=== PATIENT | male | born 1965 | race Caucasian/White ===

== ENCOUNTER 2016-11-17 13:26 | Emergency (ER) | payer OTHER ==
[~2016-11-17] VITALS: Ht 177.8 cm; Wt 97.1 kg
[~2016-11-17 13:26] MED LIST: ONDA4TAB7 PO; OXYC-323 PO; RANI150T2 PO
[2016-11-17] MEDS ORDERED: IV NORMAL SALINE 1000ML BAG 1,000 ML IV SCH (13:58)
[2016-11-17] MEDS ORDERED: FAMOTIDINE 20 MG/2 ML VIAL IVP ONE (14:00)
[2016-11-17] MEDS ORDERED: ONDANSETRON PF 4 MG/2 ML VIAL. IV ONE (14:00)
[2016-11-17] MEDS ORDERED: IOHEXOL 300 MG/ML 75 ML VIAL IV ONE (14:15)
[2016-11-17] MEDS: fentaNYL PF VIAL 100 MCG/2 ML VIAL IV PRN ×2 (14:17→16:16)
[2016-11-17 14:20] LABS: BASO % 0 % (0-3); EOS % 2 % (0-3); HEMATOCRIT 44.7 % (39.0-53.0); HEMOGLOBIN 15.5 g/dL (13.0-17.5); LYMPH # 3.8 x10^3/uL (1.0-4.8); LYMPH % 38 % (24-48); MEAN CORPUSCULAR HEMOGLOBIN 31 pg (25-35); MEAN CORPUSCULAR HGB CONC 35 g/dL (31-37); MEAN CORPUSCULAR VOLUME 90 fL (79-100); MONO % 5 % (0-9); NEUT % 55 % (31-73); PLATELET COUNT 336 x10^3/uL (140-400); RED BLOOD COUNT 4.96 x10^6/uL (4.30-5.70); RED CELL DISTRIBUTION WIDTH 13.2 % (11.5-14.5); WHITE BLOOD COUNT 9.9 x10^3/uL (4.0-11.0)
--- NOTE | 2016-11-17 14:32 | PHYS DOC ---
Past Medical History Past Medical History: Diverticulitis, Diverticulosis, GERD Past Surgical History: Cholecystectomy, Other Additional Past Surgical Histo: BACK SURGERY X2, TUMOR REMOVAL FROM THROAT Alcohol Use: Occasionally Drug Use: None Adult General Chief Complaint Chief Complaint: ABDOMINAL PAIN HPI HPI Patient is a 51 year old male who presents with complaint of abdominal pain for one week. Patient states that his pain is located in his lower left abdomen. Patient states that it has been progressively worse over the past 3 days. Patient states that the pain is constant but occasionally he has increased sharp pains with movement. Patient also has had intermittent streaking of blood in his stools which patient attributes to hemorrhoids. The patient however does state that he has had history of diverticulitis and was treated with antibiotics at that time with improvement in symptoms. Patient states that his current symptoms are similar to his previous episode. Patient has had nausea and lightheadedness but denies fevers or vomiting. Currently the patient rates his pain as 5 out of 10. The patient presented to urgent care prior to arrival in the emergency department and was instructed to come here for further evaluation due to limited testing capabilities from the urgent care. Review of Systems Review of Systems Constitutional: Lightheadedness, denies fever or chills [] Eyes: Denies change in visual acuity, redness, or eye pain [] HENT: Denies nasal congestion or sore throat [] Respiratory: Denies cough or shortness of breath [] Cardiovascular: Denies chest pain or edema[] GI: Abdominal pain, nausea, bloody stools[] : Denies dysuria or hematuria [] Musculoskeletal: Denies back pain or joint pain [] Integument: Denies rash or skin lesions [] Neurologic: Denies headache, focal weakness or sensory changes [] Current Medications Current Medications Current Medications Medications (Trade) Dose Ordered Sig/Esther Start Time Stop Time Status Last Admin Dose Admin Famotidine (Pepcid) 20 mg 1X ONCE 11/17/16 14:00 11/17/16 14:02 DC 11/17/16 14:17 20 MG Fentanyl Citrate (Fentanyl 2ml Vial) 50 mcg PRN Q15MIN PRN 11/17/16 14:00 11/18/16 13:59 11/17/16 16:16 50 MCG Iohexol (Omnipaque 300 Mg/ml) 75 ml 1X ONCE 11/17/16 14:15 11/17/16 14:16 DC 11/17/16 15:14 75 ML Ondansetron HCl (Zofran) 4 mg 1X ONCE 11/17/16 14:00 11/17/16 14:02 DC 11/17/16 14:17 4 MG Sodium Chloride 1,000 ml @ 1,000 mls/hr Q1H 11/17/16 13:58 11/17/16 14:57 DC 11/17/16 14:16 1,000 MLS/HR Allergies Allergies Allergies Coded Allergies Type Severity Reaction Last Updated Verified Penicillins Allergy Intermediate Hives 11/23/14 Yes zolpidem Adverse Reaction Severe HALLUCINATIONS 11/23/14 Yes Physical Exam Physical Exam Constitutional: Alert, afebrile, appears in mild to moderate discomfort.[] HENT: Normocephalic, atraumatic, bilateral external ears normal, oropharynx moist, no oral exudates, nose normal. [] Eyes: PERRLA, EOMI, conjunctiva normal, no discharge. [] Neck: Normal range of motion, no tenderness, supple, no stridor. [] Cardiovascular:Heart rate regular rhythm, no murmur [] Lungs & Thorax: Bilateral breath sounds clear to auscultation [] Abdomen: Bowel sounds normal, soft, left lower quadrant tenderness to palpation , minimal guarding, no rebound tenderness, no masses, no pulsatile masses. [] Skin: Warm, dry, no erythema, no rash. [] Back: No tenderness, no CVA tenderness. [] Extremities: No tenderness, no cyanosis, no clubbing, ROM intact, no edema. [] Neurologic: Alert and oriented X 3, normal motor function, normal sensory function, no focal deficits noted. [] Current Patient Data Vital Signs Vital Signs Date Time Temp Pulse Resp B/P (MAP) Pulse Ox O2 Delivery O2 Flow Rate FiO2 11/17/16 16:16 15 11/17/16 13:40 97.8 57 130/90 (103) 99 Room Air 97.8 Lab Values Laboratory Tests Test 11/17/16 14:00 White Blood Count 9.9 x10^3/uL (4.0-11.0) Red Blood Count 4.96 x10^6/uL (4.30-5.70) Hemoglobin 15.5 g/dL (13.0-17.5) Hematocrit 44.7 % (39.0-53.0) Mean Corpuscular Volume 90 fL (79-100) Mean Corpuscular Hemoglobin 31 pg (25-35) Mean Corpuscular Hemoglobin Concent 35 g/dL (31-37) Red Cell Distribution Width 13.2 % (11.5-14.5) Platelet Count 336 x10^3/uL (140-400) Neutrophils (%) (Auto) 55 % (31-73) Lymphocytes (%) (Auto) 38 % (24-48) Monocytes (%) (Auto) 5 % (0-9) Eosinophils (%) (Auto) 2 % (0-3) Basophils (%) (Auto) 0 % (0-3) Neutrophils # (Auto) 5.5 x10^3uL (1.8-7.7) Lymphocytes # (Auto) 3.8 x10^3/uL (1.0-4.8) Monocytes # (Auto) 0.5 x10^3/uL (0.0-1.1) Eosinophils # (Auto) 0.1 x10^3/uL (0.0-0.7) Basophils # (Auto) 0.0 x10^3/uL (0.0-0.2) Urine Collection Type Unknown Urine Color Yellow Urine Clarity Clear Urine pH 5.5 Urine Specific [place] 1.015 Urine Protein Negative mg/dL (NEG-TRACE) Urine Glucose (UA) Negative mg/dL (NEG) Urine Ketones (Stick) Negative mg/dL (NEG) Urine Blood Negative (NEG) Urine Nitrite Negative (NEG) Urine Bilirubin Negative (NEG) Urine Urobilinogen Dipstick 0.2 mg/dL (0.2 mg/dL) Urine Leukocyte Esterase Negative (NEG) Urine RBC 0 /HPF (0-2) Urine WBC 0 /HPF (0-4) Urine Bacteria 0 /HPF (0-FEW) Urine Mucus Marked /LPF Sodium Level 141 mmol/L (136-145) Potassium Level 4.4 mmol/L (3.5-5.1) Chloride Level 106 mmol/L (98-107) Carbon Dioxide Level 26 mmol/L (21-32) Anion Gap 9 (6-14) Blood Urea Nitrogen 11 mg/dL (8-26) Creatinine 0.9 mg/dL (0.7-1.3) Estimated GFR (Cockcroft-Gault) 89.7 BUN/Creatinine Ratio 12 (6-20) Glucose Level 81 mg/dL (70-99) Calcium Level 9.3 mg/dL (8.5-10.1) Total Bilirubin 0.6 mg/dL (0.2-1.0) Aspartate Amino Transferase (AST) 31 U/L (15-37) Alanine Aminotransferase (ALT) 40 U/L (16-63) Alkaline Phosphatase 74 U/L (46-116) Total Protein 7.6 g/dL (6.4-8.2) Albumin 3.8 g/dL (3.4-5.0) Albumin/Globulin Ratio 1.0 (1.0-1.7) Lipase 158 U/L (73-393) Laboratory Tests 11/17/16 14:00 Laboratory Tests 11/17/16 14:00 EKG EKG Not performed[] Radiology/Procedures Radiology/Procedures [facility] [address] [place], [place] [id number] IMAGING REPORT Signed PATIENT: CICI TERRY ACCOUNT: [id number] : 1965 LOCATION: ER AGE: 51 SEX: M EXAM STATUS: REG ER ORD. PHYSICIAN: GABRIEL LAMBERT MD REASON: left lower quadrant pain, history of diverticulosis PROCEDURE: CT ABD PELV W/ IV CONTRST ONLY CT ABD PELV W/ IV CONTRST ONLY dated 11/17/2016 3:11 PM Indication:LEFT LOWER QUADRANT PAIN X3DAYS
OMNI 300 75ML
Comparison: September 05, 2014 exam. Technique: Following injection of 78 mL of Omnipaque 300 IV, images were obtained through the abdomen and pelvis. No oral contrast was given. One or more of the following individualized dose reduction techniques were utilized for this examination: 1. Automated exposure control 2. Adjustment of the mA and/or kV according to patient size 3. Use of iterative reconstruction technique Findings: The liver and spleen are normal in size without focal lesions. The gallbladder is surgically absent. Pancreas, adrenal glands, and kidneys are unremarkable. No free fluid or adenopathy is seen. The unopacified bowel loops show scattered diverticula in the sigmoid and descending colon without associated inflammatory changes. There is no evidence of bowel obstruction. The appendix is unremarkable. The prostate is not enlarged. No adenopathy is seen. IMPRESSION: There is diverticulosis of the colon without evidence of diverticulitis. The study is otherwise unremarkable. Electronically signed by: Haleigh Armendariz MD (11/17/2016 4:29 PM) [facility] [place] DICTATED and SIGNED BY: HALEIGH ARMENDARIZ MD DATE: 11/17/16 1691 CC: GABRIEL LAMBERT MD; NO PCP ~ [] Course & Med Decision Making Course & Med Decision Making Pertinent Labs and Imaging studies reviewed. (See chart for details) Patient was given IV fluids, fentanyl, and Zofran in the emergency department with improvement in symptoms. The patient's CT scan was negative for radiographic evidence of acute pathology. Based off the patient's symptoms and history, I suspect the patient may indeed have acute diverticulitis. The patient will be started on Flagyl and Cipro for treatment. I did recommend patient follow-up in 2-3 days with primary doctor for reevaluation to ensure symptoms are improving with initial treatment. I advised that the patient return to the emergency department for any worsening symptoms. Patient voiced understanding and in agreement with treatment plan. Dragon Disclaimer Dragon Disclaimer This electronic medical record was generated, in whole or in part, using a voice recognition dictation system. Departure Departure Impression: Primary Impression: Abdominal pain, left lower quadrant Disposition: 01 HOME, SELF-CARE Condition: IMPROVED Referrals: NO PCP (PCP) Patient Instructions: Abdominal Pain Additional Instructions: Follow-up with your primary doctor in 2-3 days for reevaluation. Return to emergency department for any worsening symptoms. Scripts Hydrocodone/Apap 5-325 (NORCO 5-325 TABLET) 1 Each Tablet 1-2 TAB PO Q4-6HRS Y for PAIN, #15 TAB Prov: GABRIEL LAMBERT MD 11/17/16 Ondansetron (ZOFRAN ODT) 4 Mg Tab.rapdis 1 TAB SL Q8HRS Y for NAUSEA/VOMITING, #15 TAB Prov: GABRIEL LAMBERT MD 11/17/16 Ciprofloxacin Hcl (CIPRO) 500 Mg Tablet 1 TAB PO BID, #20 TAB Prov: GABRIEL LAMBERT MD 11/17/16 Metronidazole (FLAGYL) 500 Mg Tablet 500 MG PO TID, #30 TAB Prov: GABRIEL LAMBERT MD 11/17/16 GABRIEL LAMBERT MD Nov 17, 2016 14:32
[2016-11-17 14:47] LABS: BILIRUBIN,URINE NEGATIVE (NEG); GLUCOSE,URINE NEGATIVE (NEG); NITRITE,URINE NEGATIVE (NEG); PH,URINE 5.5; PROTEIN,URINE NEGATIVE (NEG-TRACE); UROBILINOGEN,URINE 0.2 mg/dL (0.2 mg/dL)
[2016-11-17 14:56] LABS: CALCIUM 9.3 mg/dL (8.5-10.1); CREATININE 0.9 mg/dL (0.7-1.3); GFR 89.7; POTASSIUM 4.4 mmol/L (3.5-5.1)
[2016-11-17 15:04] LABS: ALBUMIN 3.8 g/dL (3.4-5.0); TOTAL BILIRUBIN 0.6 mg/dL (0.2-1.0); TOTAL PROTEIN 7.6 g/dL (6.4-8.2)
[2016-11-17 15:15] LABS: BACTERIA,URINE 0 /HPF (0-FEW); RBC,URINE 0 /HPF (0-2); WBC,URINE 0 /HPF (0-4)
--- NOTE | 2016-11-17 16:33 | RAD ---
CT ABD PELV W/ IV CONTRST ONLY dated 11/17/2016 3:11 PM Indication:LEFT LOWER QUADRANT PAIN X3DAYS
OMNI 300 75ML
Comparison: September 05, 2014 exam. Technique: Following injection of 78 mL of Omnipaque 300 IV, images were obtained through the abdomen and pelvis. No oral contrast was given. One or more of the following individualized dose reduction techniques were utilized for this examination: 1. Automated exposure control 2. Adjustment of the mA and/or kV according to patient size 3. Use of iterative reconstruction technique Findings: The liver and spleen are normal in size without focal lesions. The gallbladder is surgically absent. Pancreas, adrenal glands, and kidneys are unremarkable. No free fluid or adenopathy is seen. The unopacified bowel loops show scattered diverticula in the sigmoid and descending colon without associated inflammatory changes. There is no evidence of bowel obstruction. The appendix is unremarkable. The prostate is not enlarged. No adenopathy is seen. IMPRESSION: There is diverticulosis of the colon without evidence of diverticulitis. The study is otherwise unremarkable. Electronically signed by: Haleigh Armendariz MD (11/17/2016 4:29 PM) [facility] [place]
[2016-11-17] MEDS ORDERED: HYDR-971 PO (16:57)
[2016-11-17] MEDS ORDERED: CIPR500T94 PO (16:57)
[2016-11-17] MEDS ORDERED: ONDA4TAB10 SL (16:57)
[2016-11-17] MEDS ORDERED: METR500T PO (16:57)
[2016-11-17] MEDS ORDERED: metroNIDAZOLE 500 MG TABLET PO ONE (17:00)
[2016-11-17] MEDS ORDERED: CIPROFLOXACIN HCL 250 MG TABLET. PO ONE (17:00)
[2016-11-17 17:09] VITALS: BP 118/81
== END 2016-11-17 17:25 | disposition home or self-care (01) ==
LOC: ER 13:26
DX: R10.32 Left lower quadrant pain (principal); K92.1 Melena; R11.0 Nausea; R42 Dizziness and giddiness; K21.9 Gastro-esophageal reflux disease without esophagitis; Z88.8 Allergy status to other drugs, medicaments and biological substances; Z88.0 Allergy status to penicillin; Z90.49 Acquired absence of other specified parts of digestive tract
CPT/HCPCS: 36415; 74177; 80053; 81001; 83690; 85025; 96361; 96374; 96375; 96376; 99285; J2405; J3010; J7030; Q9967; S0028

== ENCOUNTER 2017-07-29 01:50 | Emergency (ER) | payer OTHER | END 2017-07-29 04:03 | disposition home or self-care (01) | LOC: ER 01:50 | DX: J06.9 Acute upper respiratory infection, unspecified (principal); K21.9 Gastro-esophageal reflux disease without esophagitis; Z88.0 Allergy status to penicillin; Z88.8 Allergy status to other drugs, medicaments and biological substances; Z90.49 Acquired absence of other specified parts of digestive tract | CPT/HCPCS: 99283 ==